=== PATIENT | male | born 1995 | race Caucasian/White ===

== ENCOUNTER 2022-12-03 04:59 | Emergency (ER) | payer SELFPAY ==
[~2022-12-03] VITALS: Ht 170.2 cm; Wt 74.8 kg
--- NOTE | 2022-12-03 05:01 | NUR ---
PT BIBA FOR OVERDOSE. PT PLACED ON MONITOR, HR -122 OTHER VS STABLE. PT A,A,AND O X 3. SKIN W/D AND PALE.
[2022-12-03] MEDS ORDERED: THIAMINE HCL 100 MG TABLET ONE (05:06)
--- NOTE | 2022-12-03 05:15 | NUR ---
LABS DRAWN/SENT TO LAB.
[2022-12-03] MEDS: THIAMINE HCL 100 MG TABLET PO ONE (05:18)
[2022-12-03] MEDS: IV NORMAL SALINE 1000 ML BAG IV ONE (05:18)
[2022-12-03 05:23] LABS: HEMATOCRIT 44.2 % (36.7-47.1); MEAN CORPUSCULAR HEMOGLOBIN 29.6 uug (23.8-33.4); MEAN CORPUSCULAR VOLUME 89.3 fL (73.0-96.2); PLATELET COUNT (AUTO) 235 K/uL (152-348)
[2022-12-03 05:34] LABS: ALANINE AMINOTRANSFERASE 351 U/L (16-63); ALKALINE PHOSPHATASE 133 U/L (50-136); ASPARTATE AMINOTRANSFERASE 201 U/L (15-37); BILIRUBIN,DIRECT 0.1 mg/dL (0.0-0.2); BILIRUBIN,TOTAL 0.1 mg/dL (0.2-1.0); CARBON DIOXIDE 24 mmol/L (21-32); CHLORIDE 104 mmol/L (98-107); CREATININE 0.9 mg/dL (0.6-1.3); GLUCOSE 153 mg/dL (74-106); POTASSIUM 3.6 mmol/L (3.5-5.1); TOTAL PROTEIN, SERUM 8.5 g/dL (6.4-8.2); UREA NITROGEN, BLOOD 9 mg/dL (7-18)
[2022-12-03 05:37] LABS: ACETAMINOPHEN < 2.0 ug/mL (10-30)
[2022-12-03 05:42] LABS: ETHANOL 126 MG/DL (0-0)
[2022-12-03] MEDS: IV NS 1000 ML 1,000 ML IV ONE (05:59)
[2022-12-03 06:16] LABS: *BILIRUBIN,URIN NEGATIVE (NEGATIVE); *BLOOD, URINE NEGATIVE (NEGATIVE); *CLARITY,URINE CLEAR (CLEAR); *COLOR,URINE YELLOW (YELLOW); *KETONES,URINE NEGATIVE (NEGATIVE); *UROBILINOGEN,URINE 0.2 E.U./dl (NORMAL); LEUKOCYTE ESTERASE ,URINE NEGATIVE (NEGATIVE); NITRITE, URINE NEGATIVE (NEGATIVE); UGLUCOSE NEGATIVE (NEGATIVE)
[2022-12-03 06:24] LABS: *AMPHETAMINE, URINE NEGATIVE (NEGATIVE); *CANNABINOID, URINE NEGATIVE (NEGATIVE); *COCCAINE, URINE NEGATIVE (NEGATIVE); *PHENCYCLIDINE SCREEN,URINE NEGATIVE (NEGATIVE)
--- NOTE | 2022-12-03 06:58 | NUR ---
Endorsed to Valentina VARELA
[2022-12-03] MEDS ORDERED: NALO4SPR BNOSTRILS (07:48)
--- NOTE | 2022-12-03 08:07 | NUR ---
Pt. himself forcefully removed IV access girlfriend at bedside having an anxiety attack. dcd instructions given to pt. who verbalized understanding HR of 99, sbp 136/68, rr 18. 0/10 no other distress noted. Patient left room ambulatory, steady gait. [id number].
== END 2022-12-03 08:08 | disposition home or self-care (01) ==
LOC: ER 05:01
DX: F15.10 Other stimulant abuse, uncomplicated (principal); F10.129 Alcohol abuse with intoxication, unspecified; R74.01 Elevation of levels of liver transaminase levels; Y90.6 Blood alcohol level of 120-199 mg/100 ml
CPT/HCPCS: 80076; 80048; 81003; 85025; 36415; 93005; 99284; 96360; 80299; 80320; 80307; J7040 ×2; A4663; G0480